=== PATIENT | male | born 1995 | race Caucasian/White ===

== ENCOUNTER 2017-09-11 13:37 | Emergency (ER) | payer OTHER ==
[~2017-09-11] VITALS: Ht 172.7 cm; Wt 77.4 kg
[~2017-09-11 13:37] MED LIST: LEXAPRO10 MG PO
[2017-09-11 16:13] LABS: HEMATOCRIT 46.4 % (38.0-50.0); HEMOGLOBIN 16.1 G/DL (12.5-16.6); MCH 31.6 PG (29.0-34.0); MCHC 34.7 G/DL (30.0-36.0); PLATELET COUNT 186 K/uL (156-360); RBC DIS.WIDTH-CV 11.3 % (11.8-14.6); WHITE BLOOD COUNT 5.2 K/uL (4.1-10.2)
[2017-09-11 16:22] LABS: CHLORIDE 104 mEq/L (99-109); POTASSIUM 4.2 mEq/L (3.7-5.4); SODIUM 141 mEq/L (136-147)
[2017-09-11 16:23] LABS: GLUCOSE 82 mg/dL (70-99)
[2017-09-11 16:27] LABS: GFR ESTIMATE (CALCULATED) > 59 mL/min/ (58.99-99999)
[2017-09-11 16:28] LABS: UREA NITROGEN (BUN) 11 mg/dL (9-23)
[2017-09-11 16:54] LABS: MONOSPOT (MONONUCLEOSIS SEROL) NEGATIVE
[2017-09-11] MEDS ORDERED: AUGMENTIN875 MG PO (17:51)
[2017-09-11 18:36] VITALS: BP 120/70
== END 2017-09-11 18:37 | disposition home or self-care (01) ==
LOC: EME 13:37
PROVIDERS: Nurse Practitioner Family
DX: K11.20 Sialoadenitis, unspecified (principal); B34.9 Viral infection, unspecified; Z88.1 Allergy status to other antibiotic agents
CPT/HCPCS: 70491; 80048; 85027; 86308; 99281; 99285; J1885; J7030